=== PATIENT | female | born 1980 | race American Indian/Alaskan Native ===

== ENCOUNTER 2017-09-21 17:26 | Emergency (ER) | payer MEDICAID ==
[2017-09-21] MEDS ORDERED: NACL 0.9% 500 ML 500 ML IV ONE (17:54)
[2017-09-21] MEDS ORDERED: NACL 0.9% 1000 ML 1,000 ML ONE (17:55)
[2017-09-21] MEDS ORDERED: TYLENOL ONE (17:55)
[2017-09-21] MEDS ORDERED: TYLENOL PO ONE ×2 (17:55→18:00)
[2017-09-21] MEDS ORDERED: ZOSYN/NS 3.375GM/50ML 3.375 GM/50 ML BAG IV SCH (18:00)
--- NOTE | 2017-09-21 18:09 | Emergency Department Report ---
ED General Adult HPI - General Chief complaint: Pain General Stated complaint: LUPUS FLAIR UP Time Seen by Provider: 09/21/17 17:57 Source: patient, EMS Mode of arrival: Stretcher Limitations: No Limitations - History of Present Illness Initial comments: Patient is a 36 years old female history of lupus she is been doing fine until yesterday when she came with fever over 102, confused and complaining of generalized body pain and joint pain. Her daughter at bedside and she stated that this is her typical lupus flareup. No nausea no vomiting no headache. She stated that she has been coughing in the last few days too. -: days(s) - Related Data Allergies Allergy/AdvReac Type Severity Reaction Status Date / Time morphine Allergy Swelling Verified 09/21/17 17:43 ED Review of Systems ROS: Stated complaint: LUPUS FLAIR UP Other details as noted in HPI Comment: All other systems reviewed and negative Constitutional: chills, fever ENT: denies: ear pain, throat pain Respiratory: cough. denies: orthopnea, shortness of breath, SOB with exertion Gastrointestinal: denies: abdominal pain, nausea, vomiting, diarrhea, constipation Genitourinary: denies: urgency, dysuria Musculoskeletal: back pain, arthralgia, myalgia Skin: denies: rash Neurological: confusion. denies: headache, weakness, numbness, paresthesias, abnormal gait, vertigo ED Past Medical Hx - Past Medical History Previous Medical History?: Yes Hx Hypertension: Yes Hx of Cancer: Yes (cervical) Additional medical history: lupus - Surgical History Past Surgical History?: Yes Additional Surgical History: x3. cervical biposy - Social History Smoking Status: Never Smoker Substance Use Type: None ED Physical Exam - General Limitations: No Limitations General appearance: alert, in no apparent distress - Head Head exam: Present: atraumatic, normocephalic, normal inspection - Eye Eye exam: Present: normal appearance, PERRL - ENT ENT exam: Present: normal exam, normal orophraynx, mucous membranes moist - Neck Neck exam: Present: normal inspection, full ROM. Absent: tenderness, meningismus, lymphadenopathy, thyromegaly - Respiratory Respiratory exam: Present: normal lung sounds bilaterally. Absent: respiratory distress, wheezes, rales, rhonchi, stridor - Cardiovascular Cardiovascular Exam: Present: regular rate, normal rhythm, normal heart sounds - GI/Abdominal GI/Abdominal exam: Present: soft, normal bowel sounds. Absent: distended, tenderness, guarding, rebound, rigid, mass, bruit, pulsatile mass - Extremities Exam Extremities exam: Present: normal inspection, full ROM, normal capillary refill - Back Exam Back exam: Present: normal inspection. Absent: tenderness, CVA tenderness (R), CVA tenderness (L), muscle spasm, paraspinal tenderness, vertebral tenderness, rash noted - Neurological Exam Neurological exam: Present: alert, oriented X3, CN II-XII intact, normal gait, reflexes normal. Absent: abnormal gait, motor sensory deficit - Skin Skin exam: Present: warm, dry, intact ED Course Vital Signs 09/21/17 09/21/17 09/21/17 17:46 18:00 18:11 Temperature Pulse Rate 108 H 112 H Respiratory 18 18 Rate Blood Pressure 156/111 O2 Sat by Pulse 98 100 Oximetry 09/21/17 09/21/17 09/21/17 18:15 18:35 18:45 Temperature Pulse Rate 104 H 124 H 104 H Respiratory 22 16 Rate Blood Pressure 172/121 172/121 159/113 O2 Sat by Pulse 100 98 Oximetry 09/21/17 09/21/17 09/21/17 18:52 19:00 19:19 Temperature Pulse Rate 107 H 105 H Respiratory 18 18 19 Rate Blood Pressure 143/89 170/111 O2 Sat by Pulse 99 99 97 Oximetry 09/21/17 09/21/17 09/21/17 19:30 19:37 21:13 Temperature Pulse Rate 103 H Respiratory 13 18 Rate Blood Pressure 179/106 170/111 O2 Sat by Pulse 100 99 Oximetry 09/21/17 09/21/17 09/21/17 21:15 21:30 21:35 Temperature 99.3 F Pulse Rate 89 83 Respiratory 17 14 Rate Blood Pressure 170/111 151/103 O2 Sat by Pulse 97 95 Oximetry - Reevaluation(s) Reevaluation #1: 09/21/17 21:39 Patient is sleeping comfortably, easily arousable, in no acute distress. Patient stated that she is feeling much better headache is resolved. ED Medical Decision Making - Lab Data Result diagrams: 09/21/17 18:00 09/21/17 18:00 - EKG Data -: EKG Interpreted by Me EKG shows normal: sinus rhythm Rate: tachycardia - EKG Data Interpretation: no acute changes - Radiology Data Radiology results: report reviewed CT head negative for acute finding. - Medical Decision Making The patient stated that she is feeling much better. Positive influenza A test. Start patient on Tamiflu and advised to follow-up with her primary care physician. Critical care attestation.: If time is entered above; I have spent that time in minutes in the direct care of this critically ill patient, excluding procedure time. ED Disposition Clinical Impression: Headache, Influenza A virus present Disposition: DC-01 TO HOME OR SELFCARE Is pt being admited?: No Condition: Stable Instructions: Influenza (ED)
[2017-09-21] MEDS ORDERED: SUBLIMAZE IV ONE ×2 (18:10→19:00)
[2017-09-21 18:25] LABS: Basophils % (Auto) 0.5 % (0.0-1.8); Eosinophils % (Auto) 3.2 % (0.0-4.3); Hematocrit 30.8 % (30.3-42.9); Hemoglobin 9.7 gm/dl (10.1-14.3); Mean Corpuscular HGB Conc 32 % (30-34); Platelet Count 162 K/mm3 (140-440); Red Blood Count 4.41 M/mm3 (3.65-5.03); White Blood Count 6.2 K/mm3 (4.5-11.0)
[2017-09-21 18:29] LABS: Mean Corpuscular Volume 70 fl (79-97)
[2017-09-21 18:30] LABS: Mean Corpuscular Hemoglobin 22 pg (28-32)
[2017-09-21 18:42] LABS: INR 1.1 (0.87-1.13)
[2017-09-21] MEDS ORDERED: NACL 0.9% 1000 ML 1,000 ML IV ONE (18:42)
[2017-09-21 18:49] LABS: Alanine Aminotransferase 14 units/L (7-56); Albumin 4.5 g/dL (3.9-5); Albumin/Globulin Ratio 1.5 %; Alkaline Phosphatase 62 units/L (35-129); Anion Gap 16 mmol/L; BUN/Creatinine Ratio 12; Blood Urea Nitrogen 7 mg/dL (7-17); Calcium 8.9 mg/dL (8.4-10.2); Carbon Dioxide 25 mmol/L (22-30); Chloride 100.8 mmol/L (98-107); Glucose 87 mg/dL (65-100); Potassium 3.7 mmol/L (3.6-5.0); Sodium 138 mmol/L (137-145); Total Protein 7.5 g/dL (6.3-8.2)
[2017-09-21] MEDS ORDERED: ZOSYN/NS 4.5GM/100ML 4.5 GM/100 ML VIAL IV SCH (19:00)
[2017-09-21 19:13] LABS: Bilirubin,Urine NEG (Negative); Blood,Urine NEG (Negative); Ketones,Urine TR mg/dL (Negative); Leukocyte Esterase,Urine NEG (Negative); Mucus,Urine FEW /HPF; Nitrite,Urine NEG (Negative); Protein,Urine <15 mg/dL mg/dL (Negative); Urobilinogen,Urine < 2.0 mg/dL (<2.0); WBC,Urine < 1.0 /HPF (0.0-6.0)
--- NOTE | 2017-09-21 19:44 | XRay Report ---
FINAL REPORT EXAM: XR CHEST 1V AP HISTORY: possible Sepsis TECHNIQUE: upright single view chest PRIORS: None. FINDINGS: Cardiac and mediastinal contours are unremarkable. No focal pulmonary infiltrate is identified. No pleural fluid collection seen. Pulmonary vasculature is unremarkable. IMPRESSION: Negative single-view chest
--- NOTE | 2017-09-21 20:37 | Cat Scan Report ---
FINAL REPORT EXAM: CT HEAD/BRAIN WO CON HISTORY: AMS TECHNIQUE: CT head without contrast PRIORS: None. FINDINGS: No acute intra-axial or extra-axial hemorrhage is identified. There is no evidence of midline shift or mass effect. The ventricles and sulci are within normal limits. Weber-white matter differentiation is intact. No acute parenchymal abnormalities seen. Bony calvarium is grossly intact. Visualized portions of the mastoids and paranasal sinuses are unremarkable. IMPRESSION: Negative CT head is
[2017-09-21] MEDS ORDERED: CATAPRES ONE (22:37)
[2017-09-21] MEDS ORDERED: CATAPRES PO ONE (22:39)
[2017-09-21 22:41] VITALS: BP 164/104
== END 2017-09-21 22:35 | disposition home or self-care (01) ==
LOC: ED 17:26
DX: J09.X2 Influenza due to identified novel influenza A virus with other respiratory manifestations (principal); I10 Essential (primary) hypertension; Z88.6 Allergy status to analgesic agent
CPT/HCPCS: 36415; 70450; 71010; 80053; 81001; 82140; 82805; 85025; 85610; 87040; 87086; 87400; 93005; 93010; 96361; 96365; 96375; 99285; J2543; J2930; J3010; J7030; J7040